=== PATIENT | female | born 2000 | race Two or more races ===

== ENCOUNTER 2022-11-03 08:08 | Emergency (ER) | payer OTHER ==
[2022-11-03 08:19] VITALS: PULSE 64; BMI 17.6
[2022-11-03 08:58] VITALS: BP 109/84; RESP 16; TEMP 98.3
[2022-11-03] MEDS ORDERED: IBUPROFEN 600 MG TABLET (FP) PO ONE ×2 (09:32→09:35)
== END 2022-11-03 09:51 | disposition home or self-care (01) ==
LOC: JER 08:08 → JERFT 08:08
DX: S80.12XA Contusion of left lower leg, initial encounter (principal); S80.812A Abrasion, left lower leg, initial encounter; V87.0XXA Person injured in collision between car and two- or three-wheeled powered vehicle (traffic), initial encounter
CPT/HCPCS: 73590-TC-LT-FY; 99283-25

== ENCOUNTER 2024-01-07 19:20 | Emergency (ER) | payer OTHER ==
[2024-01-07 19:42] VITALS: BP 100/60; PULSE 85; RESP 18; TEMP 98.1; BMI 16.6
== END 2024-01-07 22:18 | disposition left against medical advice (07) ==
LOC: FER 19:20
DX: S06.0X0A Concussion without loss of consciousness, initial encounter (principal); S05.12XA Contusion of eyeball and orbital tissues, left eye, initial encounter; W50.1XXA Accidental kick by another person, initial encounter
CPT/HCPCS: 70450-TC; 70480-TC; 99284-25